=== PATIENT | male | born 1950 | race Caucasian/White ===

== ENCOUNTER 2019-05-07 14:26 | Outpatient (CLI) | payer MEDICARE, OTHER ==
--- NOTE | 2019-05-07 15:26 | RAD ---
RADIOGRAPH LUMBAR SPINE 2 VIEWS: DATE: 05/07/2019 HISTORY: 68-year-old male with low back pain. COMPARISON: None FINDINGS: 5 lumbar-type vertebrae. 16 degrees levoscoliosis with apex of curvature at L4-5 (measured from infer ior endplate of L2 to superior endplate of L5). Associated high-grade right-sided disc space narrowing and right-sided high-grade facet DJD at L4-5. Asymmetrically left-sided high-grade disc space narrowing and left-sided high-grade facet DJD at L5-S 1, related to the concavity of the counter curvature. Vertebral body heights are maintained. No spondylolisthesis. No high-grade disc space narrowing superior to the L4 level. IMPRESSION: Lower level high-grade lumbar spondylosis with asymmetrical degenerative disc disease and a symmetric al facet osteoarthrosis associated with a lower level levoscoliosis.
== END 2019-05-07 14:27 | disposition home or self-care (01) ==
LOC: BICRAD 14:26
PROVIDERS: ATTEND Specialist
DX: M54.5 Low back pain (principal); M51.36 Other intervertebral disc degeneration, lumbar region; M47.816 Spondylosis without myelopathy or radiculopathy, lumbar region; M41.86 Other forms of scoliosis, lumbar region
CPT/HCPCS: 72100

== ENCOUNTER 2019-05-26 13:38 | Outpatient (CLI) | payer MEDICARE, OTHER ==
--- NOTE | 2019-05-26 15:58 | MRI ---
MRI OF LUMBAR SPINE PERFORMED WITHOUT CONTRAST ENHANCEMENT: HISTORY: Back pain. FINDINGS: Vertebral bodies are normal in height. Some scoliotic change through the spine. There is some mild disk narrowing at L2-3 with Modic-type changes. Slightly more pronounced disk narrowing and Modic ch anges at L4-5. There is no significant periaortic adenopathy and the visualized portions of the kidn eys are normal. T12-L1: Degenerative facet changes without canal or foraminal narrowing. L1-2: No canal or foraminal stenosis. L2-3: Disk bulge with facet and ligamentous hypertrophic changes are associated with a mild degree o f canal narrowing without significant foraminal stenosis. L3-4: The canal also shows mild to moderate narrowing at this level with prominent degenerative face t changes. No foraminal stenosis. L4-5: Moderately severe canal narrowing at this level related to prominent degenerative facet and li gamentous hypertrophic change. There is also mild right foraminal narrowing. L5-S1: Prominent degenerative facet changes at this level with borderline canal narrowing. No signi ficant right-sided foraminal narrowing. There is moderate left foraminal stenosis. IMPRESSION: Multilevel areas of canal and foraminal narrowing. POS: JEY
== END 2019-05-26 13:39 | disposition home or self-care (01) ==
LOC: SCSMRI 13:38
PROVIDERS: ATTEND Specialist
DX: M47.816 Spondylosis without myelopathy or radiculopathy, lumbar region (principal); M48.061 Spinal stenosis, lumbar region without neurogenic claudication; M48.07 Spinal stenosis, lumbosacral region
CPT/HCPCS: 72148

== ENCOUNTER 2021-03-14 12:22 | Outpatient (CLI) | payer MEDICARE, OTHER | END 2021-03-14 12:23 | disposition home or self-care (01) | LOC: TBSIIMAG 12:22 | PROVIDERS: ATTEND Surgery | DX: M48.062 Spinal stenosis, lumbar region with neurogenic claudication (principal) | CPT/HCPCS: 72148 ==

== ENCOUNTER 2021-05-10 14:15 | Outpatient (CLI) | payer MEDICARE, OTHER ==
[2021-05-10 14:51] LABS: Hemoglobin 13.1 g/dL (13.5-17.5); Mean Corpuscular HGB CONC 33.5 g/dL (32.0-36.0); Mean Corpuscular Hemoglobin 30.8 pg (27.0-33.0); Mean Platelet Volume 10.6 fl (7.4-10.4); Platelet Count 216 10x3/uL (150-450); RBC Distribution Width 11.9 % (11.5-14.5); Red Blood Cell (RBC) Count 4.25 10x6/uL (4.32-5.72); White Blood Cell (WBC) Count 5.9 10x3/uL (3.5-10.5)
[2021-05-10 15:02] LABS: PTT 27.8 sec (22.0-33.0); Prothrombin Time 11.4 sec (9.5-12.1)
[2021-05-10 15:08] LABS: Anion Gap 13 mmol/L (10-20); BUN (Urea Nitrogen) 13 mg/dL (8.4-25.7); Calc. Creatinine Clearance 0 mL/min (70-130); Carbon Dioxide 24 mmol/L (23-31); Chloride 107 mmol/L (98-107); Glucose 126 mg/dL (80-115); Sodium 140 mmol/L (136-145)
[2021-05-11 08:37] LABS: SARS-CoV-2 PCR by NAA Not Detected (NotDetected)
== END 2021-05-10 14:16 | disposition home or self-care (01) ==
LOC: LABBT 14:15
PROVIDERS: ATTEND Surgery
DX: Z01.812 Encounter for preprocedural laboratory examination (principal); M51.16 Intervertebral disc disorders with radiculopathy, lumbar region; M48.061 Spinal stenosis, lumbar region without neurogenic claudication; Z20.822 Contact with and (suspected) exposure to COVID-19
CPT/HCPCS: 80048; 85027; 85610; 85730; U0003; U0005

== ENCOUNTER 2021-05-13 06:03 | Observation (INO) | payer MEDICARE, OTHER ==
[2021-05-13] MEDS ORDERED: Thrombin 5000 UNITS/5 ML VIAL ONE (07:04)
[2021-05-13] MEDS ORDERED: Dexmedetomidine 200 MCG/2 ML VIAL ONE (07:12)
[2021-05-13] MEDS ORDERED: Fentanyl 250 MCG/5 ML VIAL ONE (07:12)
[2021-05-13] MEDS ORDERED: ceFAZolin 2 GM/Dextrose 50 ML IVPB ONE (07:23)
[2021-05-13] MEDS ORDERED: Dexamethasone 20 MG/5 ML VIAL ONE (07:37)
[2021-05-13] MEDS ORDERED: PHENYLEPHRINE-NS 100 MCG/ML 10 ML SYRINGE ONE (07:37)
[2021-05-13] MEDS ORDERED: ePHEDrine 50 MG/ML VIAL ONE (07:37)
[2021-05-13] MEDS ORDERED: Lidocaine 1% PF 5 ML VIAL ONE (07:37)
[2021-05-13] MEDS ORDERED: Rocuronium Bromide 10 MG/ML (10ML VIAL) ONE (07:37)
[2021-05-13] MEDS ORDERED: Ondansetron PF 4 MG/2 ML Vial ONE (07:37)
[2021-05-13] MEDS ORDERED: PROPOFOL 200 MG/20 ML VIAL ONE (07:37)
[2021-05-13] MEDS ORDERED: Ketorolac Tromethamine 30 MG/ML VIAL ONE (07:37)
[2021-05-13] MEDS ORDERED: Phenylephrine 10 MG/ML VIAL ONE (09:40)
[2021-05-13] MEDS ORDERED: SUGAMMADEX SODIUM 200 MG/2 ML VIAL ONE (10:23)
[2021-05-13] MEDS ORDERED: Acetaminophen/Codeine 30-300mg Tablet PO PRN (10:52)
[2021-05-13] MEDS ORDERED: traMADol HCl 50 MG TAB PO PRN (10:52)
[2021-05-13] MEDS ORDERED: Acetaminophen 325 MG TAB PO PRN (10:52)
[2021-05-13] MEDS ORDERED: hydrALAZINE 20 MG/ML VIAL SLOW IVP PRN (10:57)
[2021-05-13] MEDS ORDERED: Ondansetron HCl/PF 4 MG/2 ML Vial IVP PRN (11:03)
[2021-05-13] MEDS ORDERED: PACU-Morphine 4MG/ML VIAL SLOW IVP PRN (11:03)
[2021-05-13] MEDS ORDERED: HYDROmorphone 2 MG/ML VIAL SLOW IVP PRN (11:03)
[2021-05-13] MEDS ORDERED: Promethazine HCl 25 MG/ML VIAL IVPB PRN (11:03)
[2021-05-13] MEDS ORDERED: Morphine Sulfate 2 MG/ML SYRINGE SLOW IVP PRN (11:03)
[2021-05-13] MEDS ORDERED: Promethazine HCl 25 MG/ML VIAL IM PRN (11:03)
[2021-05-13] MEDS ORDERED: Morphine 4 MG/ML VIAL SLOW IVP PRN (11:50)
[2021-05-13] MEDS: HYDROcodone/Acetaminophen 7.5/325 mg Tablet PO PRN ×2 (12:16→18:22)
[2021-05-13] MEDS: tiZANidine HCl 4 MG TAB PO PRN ×2 (13:19→21:22)
[2021-05-13] MEDS: ceFAZolin 2 GM/Dextrose 50 ML 2 GM in Premix Bag 1 BAG IVPB SCH (15:16)
[2021-05-13] MEDS: Sodium Chloride 0.9% 1,000 ML IV SCH (15:29)
[2021-05-13 15:41] VITALS: BMI 28.8
[2021-05-14] MEDS: Sodium Chloride 0.9% 1,000 ML IV SCH ×2 (01:40→10:37)
[2021-05-14] MEDS: ceFAZolin 2 GM/Dextrose 50 ML 2 GM in Premix Bag 1 BAG IVPB SCH (01:40)
[2021-05-14] MEDS: HYDROcodone/Acetaminophen 7.5/325 mg Tablet PO PRN ×2 (08:29→13:03)
[2021-05-14] MEDS ORDERED: Losartan 25 MG TAB PO SCH (09:00)
[2021-05-14] MEDS ORDERED: Rosuvastatin 20 MG TAB PO SCH (09:00)
[2021-05-14] MEDS ORDERED: Escitalopram Oxalate 10 mg Tablet PO SCH (09:00)
[2021-05-14] MEDS ORDERED: Amlodipine 5 MG TAB PO SCH (09:00)
[2021-05-14] MEDS ORDERED: Ascorbic Acid 500 mg Chewable Tablet PO SCH (09:00)
[2021-05-14 11:28] VITALS: BP 94/60; TEMP 98.8
[2021-05-14] MEDS ORDERED: Dexamethasone 4 mg/ml Vial SLOW IVP SCH (12:15)
== END 2021-05-14 14:15 | disposition home or self-care (01) ==
LOC: SDC 06:03 → SURG A 10:52
PROVIDERS: ADMIT Surgery; ATTEND Surgery
PROC: 01NB0ZZ Release Lumbar Nerve, Open Approach (ICD-10-PCS; principal; 2021-05-13)
PROC: 0SB40ZZ Excision of Lumbosacral Disc, Open Approach (ICD-10-PCS; 2021-05-13)
DX: M48.061 Spinal stenosis, lumbar region without neurogenic claudication (principal); M51.16 Intervertebral disc disorders with radiculopathy, lumbar region; M25.78 Osteophyte, vertebrae; M25.551 Pain in right hip; I25.119 Atherosclerotic heart disease of native coronary artery with unspecified angina pectoris; K21.9 Gastro-esophageal reflux disease without esophagitis; Z79.02 Long term (current) use of antithrombotics/antiplatelets; Z79.82 Long term (current) use of aspirin; Z79.899 Other long term (current) drug therapy; Z95.5 Presence of coronary angioplasty implant and graft
CPT/HCPCS: 76000; 93970; 96374; 96375; 96376; G0378; J0690; J1100; J1885; J2370; J2405; J2704; J3010; J3370; J3490

== ENCOUNTER 2021-07-11 14:46 | Outpatient (CLI) | payer MEDICARE, OTHER | END 2021-07-11 14:47 | disposition home or self-care (01) | LOC: BICRAD 14:46 | PROVIDERS: ATTEND Specialist | DX: M47.26 Other spondylosis with radiculopathy, lumbar region (principal); M51.16 Intervertebral disc disorders with radiculopathy, lumbar region; Z98.890 Other specified postprocedural states | CPT/HCPCS: 72110 ==

== ENCOUNTER 2022-06-01 10:01 | Day surgery (SDC) | payer MEDICARE, OTHER ==
[2022-05-23 15:49] VITALS: BMI 27.7
[2022-06-01] MEDS ORDERED: PROPOFOL 60 ML ONE (11:15)
[2022-06-01] MEDS ORDERED: Famotidine/PF 20 mg/2ml Vial ONE (11:15)
[2022-06-01] MEDS ORDERED: fentaNYL PF 100 MCG/2 ML SYRINGE ONE (11:15)
[2022-06-01] MEDS ORDERED: Midazolam HCl 2 mg/2 ml Vial ONE ×2 (11:15→11:40)
[2022-06-01] MEDS ORDERED: Propofol 500 MG/50 ML VIAL ONE (11:15)
[2022-06-01] MEDS ORDERED: Lidocaine 1% (PF) 30 ML VIAL ONE (11:43)
[2022-06-01] MEDS ORDERED: methylPREDNISolone Acetate 40 mg/ml Vial ONE (11:43)
[2022-06-01] MEDS ORDERED: Bupivacaine HCl 0.5%/Epinephrine 1:200,000/PF 30 ml Vial ONE (11:43)
[2022-06-01] MEDS ORDERED: CEFAZOLIN 2 GM VIAL ONE (12:12)
[2022-06-01] MEDS ORDERED: Sodium Chloride 0.9% 100 ML ONE (12:12)
[2022-06-01] MEDS ORDERED: Ondansetron PF 4 MG/2 ML Vial ONE (12:49)
[2022-06-01] MEDS ORDERED: Lidocaine 1% PF 5 ML VIAL ONE (12:49)
[2022-06-01] MEDS ORDERED: PROPOFOL 200 MG/20 ML VIAL ONE (12:49)
[2022-06-01] MEDS ORDERED: Ketorolac Tromethamine 30 MG/ML VIAL ONE (12:49)
[2022-06-01] MEDS ORDERED: Morphine 2 MG/ML VIAL ONE (14:31)
== END 2022-06-01 14:44 | disposition home or self-care (01) ==
LOC: SDC 10:01
PROVIDERS: ATTEND Specialist
PROC: 0JH70DZ Insertion of Multiple Array Stimulator Generator into Back Subcutaneous Tissue and Fascia, Open Approach (ICD-10-PCS; principal; 2022-06-01)
PROC: 00HU3MZ Insertion of Neurostimulator Lead into Spinal Canal, Percutaneous Approach (ICD-10-PCS; 2022-06-01)
DX: M96.1 Postlaminectomy syndrome, not elsewhere classified (principal); G89.4 Chronic pain syndrome; M51.16 Intervertebral disc disorders with radiculopathy, lumbar region; M47.26 Other spondylosis with radiculopathy, lumbar region; M47.817 Spondylosis without myelopathy or radiculopathy, lumbosacral region; I25.10 Atherosclerotic heart disease of native coronary artery without angina pectoris; K21.9 Gastro-esophageal reflux disease without esophagitis; I11.9 Hypertensive heart disease without heart failure; Z79.02 Long term (current) use of antithrombotics/antiplatelets; Z79.82 Long term (current) use of aspirin; Z79.899 Other long term (current) drug therapy; Z95.5 Presence of coronary angioplasty implant and graft
CPT/HCPCS: 63650 ×2; 63685; 72020; C1713; C1778; C1787; C1820; L8689; J1030; J1885; J2001; J2250; J2272; J2405; J2704; J3490; S0028